=== PATIENT | female | born 1965 ===

== ENCOUNTER 2024-06-25 06:00 | Outpatient (CLI) | payer OTHER ==
[~2024-06-25] VITALS: Ht 165.1 cm; Wt 64.9 kg
[2024-06-25] MEDS ORDERED: CYMBALTA60 MG PO (11:01)
[2024-06-25] MEDS ORDERED: ZESTRIL10 M1 PO (11:01)
[2024-06-25] MEDS ORDERED: LYRICA100 MG PO (11:01)
[2024-06-25] MEDS ORDERED: ORENCIA125 MG/1 M (11:02)
[2024-06-25] MEDS ORDERED: ELIQUIS5 MG PO (11:02)
[2024-06-25] MEDS ORDERED: SINGULAIR10 MG PO (11:02)
[2024-06-25 11:03] VITALS: BP 126/81
[2024-06-25 12:15] LABS: RH POSITIVE
== END 2024-06-25 06:01 | disposition home or self-care (01) ==
LOC: LAB 06:00 → ADM 09:45 → CIR.AMB 06-27 09:45 → EDSTATUS 06-27 09:45 → CIR.AMB 06-27 19:45
PROVIDERS: ATTEND Obstetrics & Gynecology Gynecologic Oncology
DX: C56.9 Malignant neoplasm of unspecified ovary (principal); D64.9 Anemia, unspecified; N39.0 Urinary tract infection, site not specified; R97.8 Other abnormal tumor markers; R79.89 Other specified abnormal findings of blood chemistry; I10 Essential (primary) hypertension